=== PATIENT | female | born 1980 | race Caucasian/White ===

== ENCOUNTER 2020-06-12 06:50 | Day surgery (SDC) | payer OTHER ==
[~2020-06-12] VITALS: Ht 162.6 cm; Wt 117.9 kg
--- NOTE | ~2020-06-12 | OR ---
[facility] [address] [place], [place] [address] Draft DATE OF OPERATION: 06/12/2020 SURGEON: Sharri Salvador MD PREOPERATIVE DIAGNOSIS: Right trigger thumb. POSTOPERATIVE DIAGNOSIS: Right trigger thumb. PROCEDURE PERFORMED: Right trigger thumb release. KEYBOARD OPERATOR: None. ANESTHESIA: Sedation local. TOURNIQUET TIME: 7 minutes. BRIEF HISTORY: Raina is a 40-year-old female with progressive worsening of locking in her thumb. Risks and benefits of operative treatment were discussed with her and she elected to proceed. DESCRIPTION OF PROCEDURE: Once consent was obtained, she was taken to the operating room. After adequate anesthesia, the arm was prepped and draped in a standard sterile fashion, exsanguinated using Esmarch bandage. Tourniquet was inflated to 200 mmHg. The A1 trena of the right thumb was then approached through a 1 cm incision. Under loupe magnification, the nerve was retracted and protected. The tendon sheath was then dissected free of overlying soft tissue and the A1 trena was released. Patient was asked to move her thumb. She was able to fully flex and fully extend without any trouble. The wound was then copiously irrigated with antibiotic solution, closed with 3-0 nylon, dressed with bacitracin, Adaptic 4 x 8s, and gauze. We did inject 4 mL 0.25% plain Marcaine prior to closure. She was then taken to the recovery room in satisfactory condition. PATIENT NAME: RAINA FANG OPERATIVE REPORT DATE OF : 76 REPORT #: [id number] PHYSICIAN: SHARRI SALVADOR MD PCP: PRESELY POLLOCK PAC REPORT IS CONFIDENTIAL AND NOT TO BE RELEASED WITHOUT AUTHORIZATION [address] [place], [place] [address] Draft Sharri Salvador MD BA/LUIZ /[id number] Copies: ~ PATIENT NAME: RAINA FANG OPERATIVE REPORT DATE OF : 76 REPORT #: [id number] PHYSICIAN: SHARRI SALVADOR MD PCP: PRESLEY POLLOCK PAC REPORT IS CONFIDENTIAL AND NOT TO BE RELEASED WITHOUT AUTHORIZATION
[~2020-06-12 06:50] MED LIST: IBUPROFEN600 MG PO; LISINOPRIL40 MG PO; NORCO 5-325 TA1 EACH PO; SUDOGEST30 MG PO; TRAZODONE HCL50 MG PO
--- NOTE | 2020-06-12 07:39 | NUR ---
06/12/20 0739 Keyanna Shirley 0728- PT ARRIVES TO PACU AWAKE AND ORIENTED. PT REPORTS NO PAIN OR NAUSEA. RESP EVEN AND UNLABORED. OXYGEN SAT MID TO HIGH 90'S ON RA. 0731- ICE PACK APPLIED TO PT'S RIGHT HAND WITH DRESSING IN BETWEEN ICE PACK AND SKIN.
[2020-06-12] MEDS ORDERED: HYDROCODON-ACE1 EA10 PO (07:45)
--- NOTE | 2020-06-12 13:25 | EKG ---
[facility] [address] [facility] [place], [place] [address] Signed Sinus bradycardia with sinus arrhythmia Otherwise normal ECG No previous ECGs available Confirmed by JERRICA SAUER MD ([id number] on 06/12/2020 1:25:25 PM Electronically Signed By: JERRICA SAUER MD 06/12/20 1325 PATIENT NAME: INDIA FANG Electrocardiogram DATE OF : 76 PHYSICIAN: JERRICA SAUER MD REPORT #: [id number] REPORT IS CONFIDENTIAL AND NOT TO BE RELEASED WITHOUT AUTHORIZATION
== END 2020-06-12 08:10 | disposition home or self-care (01) ==
LOC: OPS 06:50 → DS 06:50 → OPS 08:10
PROVIDERS: ATTEND Specialist
PROC: 0LN70ZZ Release Right Hand Tendon, Open Approach (ICD-10-PCS; principal; 2020-06-12 06:45)
DX: M65.311 Trigger thumb, right thumb (principal); F17.210 Nicotine dependence, cigarettes, uncomplicated; Z79.899 Other long term (current) drug therapy
CPT/HCPCS: 64415; 76942; 93005; 93010; J1100; J2001; J2250; J2704; J2795; J3010; J7121